=== PATIENT | female | born 1950 | race Caucasian/White ===

== ENCOUNTER 2021-03-22 12:29 | Inpatient (IN) ==
[2021-03-22] MEDS ORDERED: CeFAZolin Syr 2,000MG/20 ML 2,000 MG/20 ML SYRINGE IVPB ONE (12:58)
[2021-03-22] MEDS ORDERED: Vancomycin 1,250 MG/262.5 ML IV.SOLN IVPB ONE (12:58)
[2021-03-22] MEDS ORDERED: Ringers Solution, Lactated 1,000 ML IVC SCH (13:00)
[2021-03-22] MEDS ORDERED: *HR* HYDROmorphone PF 0.5 MG/0.5 ML SYRINGE IVP PRN (13:26)
[2021-03-22] MEDS ORDERED: Promethazine 6.25 MG in Water for inj. (sterile) 20 ML IVPB PRN (13:26)
[2021-03-22] MEDS ORDERED: *HR* OxyCODONE Immed Rel 5 MG TABLET PO PRN ×2 (13:26→20:13)
[2021-03-22] MEDS ORDERED: Ondansetron 4 MG/2 ML VIAL IVP PRN ×2 (13:26→20:13)
[2021-03-22] MEDS ORDERED: Vancomycin 1,000 MG, Sodium Chloride IRRigation 1,000 ML IR ONE (14:20)
[2021-03-22] MEDS ORDERED: *HR* Propofol 200 MG/20 ML VIAL IVP ONE (15:26)
[2021-03-22] MEDS ORDERED: Ondansetron 4 MG/2 ML VIAL ONE (15:27)
[2021-03-22] MEDS ORDERED: *HR* Rocuronium Bromide 50 MG/5 ML VIAL ONE (15:27)
[2021-03-22] MEDS ORDERED: Lidocaine -MPF 2% 2 ML VIAL ONE (15:27)
[2021-03-22] MEDS ORDERED: *HR* FentaNYL (PF) 100 MCG/2 ML VIAL ONE (15:34)
[2021-03-22] MEDS ORDERED: *HR* Phenylephrine 10 MG/ML VIAL ONE (15:35)
[2021-03-22] MEDS ORDERED: Protamine Sulfate 50 MG/5 ML VIAL IVP ONE (15:59)
[2021-03-22] MEDS ORDERED: Heparin 1,000 UNITS/500 mL 500 ML ONE (16:00)
[2021-03-22] MEDS ORDERED: Bupivacaine-MPF 0.25% 10 ML VIAL ONE (16:00)
[2021-03-22] MEDS ORDERED: *HR* Remifentanil 1 MG VIAL IVP ONE ×2 (16:35→18:29)
[2021-03-22] MEDS ORDERED: Lidocaine HCL 4 ML Topical Solution (Laryng-O-Jet Kit Sterile Pak) TP ONE (16:39)
[2021-03-22] MEDS ORDERED: EPHEDrine 50 MG/ML VIAL ONE (17:01)
[2021-03-22] MEDS ORDERED: *HR* Heparin 5,000 UNIT/ML VIAL ONE (17:22)
[2021-03-22] MEDS ORDERED: Sugammadex Sodium 200 MG/2 ML VIAL IV ONE (18:46)
[2021-03-22] MEDS ORDERED: *HR* Labetalol 20 MG/4 ML SYRINGE IVP ONE (19:09)
[2021-03-22] MEDS ORDERED: Acetaminophen 325 MG TABLET PO PRN (20:13)
[2021-03-22] MEDS ORDERED: *HR* Labetalol 20 MG/4 ML SYRINGE IVP PRN (20:13)
[2021-03-22] MEDS ORDERED: Naloxone 0.4 MG/ML INJ IVP PRN (20:13)
[2021-03-22] MEDS ORDERED: 0.9 % Sodium Chloride 1,000 ML IVC SCH (20:13)
[2021-03-22] MEDS ORDERED: *HR* HYDROcodone/Acet 5/325 mg TABLET PO PRN (20:13)
[2021-03-22] MEDS: *HR* Metoprolol 5 MG/5 ML VIAL IVP SCH (21:17)
[2021-03-22] MEDS: lisinopriL 20 MG TABLET PO SCH (21:17)
[2021-03-23] MEDS: CeFAZolin 2 GM/120 ML BAG IVPB SCH ×2 (00:01→08:01)
[2021-03-23] MEDS ORDERED: Vancomycin 1,250 MG/262.5 ML IV.SOLN IVPB ONE (04:00)
[2021-03-23] MEDS: *HR* Metoprolol 5 MG/5 ML VIAL IVP SCH ×2 (04:22→08:03)
[2021-03-23] MEDS ORDERED: *HR* Heparin 5,000 UNIT/ML VIAL SQ SCH ×2 (06:00)
[2021-03-23] MEDS: lisinopriL 20 MG TABLET PO SCH (08:02)
[2021-03-23] MEDS ORDERED: Cholecalciferol (D-3) 1,000 UNIT (25MCG) TABLET PO SCH (09:00)
[2021-03-23] MEDS ORDERED: Famotidine 20 MG TABLET PO SCH (09:00)
[2021-03-23] MEDS ORDERED: amLODIPine 5 MG TABLET PO SCH (09:00)
[2021-03-23] MEDS ORDERED: Aspirin Enteric Coated 81 MG Tablet PO SCH (09:00)
[2021-03-23] MEDS ORDERED: Multivit/Ca/Min/Fe/FA 1 TAB TABLET PO SCH (09:00)
[2021-03-23 10:57] VITALS: BP 130/57; PULSE 70; TEMP 98; O2SAT 94
== END 2021-03-23 12:15 | disposition home or self-care (01) | DRG 39 ==
LOC: SAMDAY 12:29 → 2NNU 20:02
PROVIDERS: ADMIT Surgery; ATTEND Surgery